=== PATIENT | female | born 1970 | race Caucasian/White ===

== ENCOUNTER 2020-08-17 14:30 | Inpatient (IN) | payer BC, OTHER ==
[~2020-08-17] VITALS: Ht 167.6 cm; Wt 143.3 kg
[~2020-08-17 14:30] MED LIST: ATENOLOL25 MG PO; CARAFATE 1 GM TA1 GM PO; CYCLOBENZAPRINE10 MG PO; DULOXETINE HCL60 MG PO; FAMOTIDINE20 MG PO; GABAPENTIN600 MG PO; HYDROXYZINE PAM25 MG PO; LEVOTHYROXINE50 MCG PO; LISINOPRIL10 MG PO; MELOXICAM15 MG PO; PROPAFENONE HC300 MG PO; PROTONIX40 MG PO
[2020-08-17 16:22] LABS: HEMOGLOBIN 13.9 gm/dl (12.3-15.3); RED BLOOD COUNT 4.96 M/UL (4.00-5.10); WHITE BLOOD COUNT 4.8 K/UL (4.5-11.0)
[2020-08-17 16:39] LABS: BUN/CREATININE RATIO 13 (0-10)
[2020-08-18 05:36] LABS: HEMOGLOBIN 12.4 gm/dl (12.3-15.3)
[2020-08-18 05:37] LABS: RED BLOOD COUNT 4.45 M/UL (4.00-5.10); WHITE BLOOD COUNT 2.3 K/UL (4.5-11.0)
[2020-08-18 05:56] LABS: BUN/CREATININE RATIO 13 (0-10)
--- NOTE | 2020-08-18 18:11 | NUR ---
NO IV MEDS, PATIENT STABLE, STATES OK TO LEAVE IV OUT
[2020-08-19 04:15] LABS: HEMOGLOBIN 12.2 gm/dl (12.3-15.3); RED BLOOD COUNT 4.4 M/UL (4.00-5.10)
[2020-08-19 04:17] LABS: WHITE BLOOD COUNT 4.7 K/UL (4.5-11.0)
[2020-08-19 04:57] LABS: BUN/CREATININE RATIO 23 (0-10)
[2020-08-19] MEDS ORDERED: PROVENTIL HFA6.7 GM INH (09:25)
[2020-08-19] MEDS ORDERED: DEXAMETHASONE 44 MG PO (09:25)
[2020-08-19] MEDS ORDERED: DOXYCYCLINE HY100 M2 PO (09:25)
[2020-08-19] MEDS ORDERED: CEPHALEXIN250 MG PO (09:25)
[2021-02-09] MEDS ORDERED: ATENOLOL25 MG PO (12:58)
[2021-02-09] MEDS ORDERED: WELLBUTRIN SR100 MG PO (12:58)
[2021-02-09] MEDS ORDERED: CYMBALTA60 MG PO (12:59)
[2021-02-09] MEDS ORDERED: MOBIC15 MG PO (12:59)
[2021-02-09] MEDS ORDERED: LISINOPRIL5 MG PO (12:59)
[2021-02-09] MEDS ORDERED: PROPAFENONE HC300 MG PO (13:00)
[2021-02-09] MEDS ORDERED: NEURONTIN800 MG PO (13:00)
[2021-02-09] MEDS ORDERED: ZANAFLEX4 MG PO (13:01)
[2021-02-09] MEDS ORDERED: VISTARIL25 MG PO (13:01)
[2021-02-09] MEDS ORDERED: LEVOTHYROXINE50 MC1 PO (13:02)
[2021-02-09] MEDS ORDERED: LO-DOSE ASPIRIN81 MG PO (16:20)
[2021-02-11] MEDS ORDERED: HYDROCODON-ACE1 EAC2 PO (09:14)
== END 2020-08-19 15:07 | disposition home or self-care (01) | DRG 177 ==
LOC: ER1 14:30 → CDU 18:03 → MED SURG 4 18:03
PROVIDERS: Emergency Medicine; Internal Medicine; ADMIT Internal Medicine Infectious Disease
PROC: 8E0ZXY6 Isolation (ICD-10-PCS; principal; 2020-08-17)
DX: U07.1 COVID-19 (principal); J12.82 Pneumonia due to coronavirus disease 2019; J96.00 Acute respiratory failure, unspecified whether with hypoxia or hypercapnia; Z68.44 Body mass index [BMI] 60.0-69.9, adult; I48.0 Paroxysmal atrial fibrillation; E87.6 Hypokalemia; D72.819 Decreased white blood cell count, unspecified; I10 Essential (primary) hypertension; K22.8 Other specified diseases of esophagus; G89.4 Chronic pain syndrome; F41.9 Anxiety disorder, unspecified; E66.01 Morbid (severe) obesity due to excess calories; E03.9 Hypothyroidism, unspecified; K21.9 Gastro-esophageal reflux disease without esophagitis; M19.90 Unspecified osteoarthritis, unspecified site; Z96.653 Presence of artificial knee joint, bilateral; Z82.49 Family history of ischemic heart disease and other diseases of the circulatory system; Z88.0 Allergy status to penicillin; Z79.899 Other long term (current) drug therapy; Z79.890 Hormone replacement therapy
CPT/HCPCS: 36415; 36600; 71045; 80048; 80053; 82803; 83735; 85025; 85027; 94760; 96374; 96375; 99285; J1100; J1650; J2405; J3480; J7030; J7040; J7121; Q0177; U0002

== ENCOUNTER → 2020-11-19 | Outpatient (CLI) | payer OTHER ==
[~2020-11-19] MED LIST changes: +CEPHALEXIN250 MG PO; +CYMBALTA60 MG PO; +DEXAMETHASONE 44 MG PO; +DOXYCYCLINE HY100 M2 PO; +HYDROCODON-ACE1 EAC2 PO; +LEVOTHYROXINE50 MC1 PO; +LISINOPRIL5 MG PO; +LO-DOSE ASPIRIN81 MG PO; +MOBIC15 MG PO; +NEURONTIN800 MG PO; +PROVENTIL HFA6.7 GM INH; +VISTARIL25 MG PO; +WELLBUTRIN SR100 MG PO; +ZANAFLEX4 MG PO
== END ==
LOC: KOH-I 12:16
DX: M79.671 Pain in right foot (principal); M79.672 Pain in left foot
CPT/HCPCS: 73610; 73630

== ENCOUNTER → 2020-12-11 | Outpatient (CLI) | payer OTHER | LOC: KOH-I 10:19 | DX: M79.605 Pain in left leg (principal) | CPT/HCPCS: 73610; 73630; 93971 ==

== ENCOUNTER → 2021-02-09 | Outpatient (CLI) | payer OTHER ==
[2021-02-09 12:47] LABS: HEMOGLOBIN 13.7 gm/dl (12.3-15.3); RED BLOOD COUNT 4.86 M/UL (4.00-5.10); WHITE BLOOD COUNT 6.7 K/UL (4.5-11.0)
[2021-02-09 13:11] LABS: BUN/CREATININE RATIO 27 (0-10)
== END ==
LOC: OPSV2 02-05 09:30
PROVIDERS: Orthopaedic Surgery
DX: Z01.818 Encounter for other preprocedural examination (principal); G56.01 Carpal tunnel syndrome, right upper limb; Z88.0 Allergy status to penicillin
CPT/HCPCS: 36415; 80048; 85025; 93005

== ENCOUNTER → 2021-02-11 | Day surgery (SDC) | payer OTHER ==
[~2021-02-11] VITALS: Ht 167.6 cm; Wt 149.2 kg
== END | disposition home or self-care (01) ==
LOC: OR 06:13
DX: G56.01 Carpal tunnel syndrome, right upper limb (principal); M77.11 Lateral epicondylitis, right elbow; I10 Essential (primary) hypertension; I48.91 Unspecified atrial fibrillation; M79.7 Fibromyalgia; K58.9 Irritable bowel syndrome, unspecified; E66.9 Obesity, unspecified; M19.90 Unspecified osteoarthritis, unspecified site; Z88.0 Allergy status to penicillin
CPT/HCPCS: J0690; J2001; J2250; J2405; J2704; J3010; J7120

== ENCOUNTER → 2021-10-21 | Outpatient (CLI) | payer OTHER ==
[~2021-10-21] MED LIST changes: -LISINOPRIL5 MG PO; +VITAMIN D21250 MCG PO; -WELLBUTRIN SR100 MG PO; +WELLBUTRIN SR150 MG PO
[2021-10-21 11:49] LABS: BUN/CREATININE RATIO 27 (0-10)
== END ==
LOC: OPSV2 10:00
PROVIDERS: Orthopaedic Surgery
DX: Z01.818 Encounter for other preprocedural examination (principal); G56.01 Carpal tunnel syndrome, right upper limb
CPT/HCPCS: 36415; 71046; 80048; 83036; 93005

== ENCOUNTER → 2021-10-28 | Day surgery (SDC) | payer OTHER ==
[~2021-10-28] VITALS: Ht 167.6 cm; Wt 144.7 kg
== END | disposition home or self-care (01) ==
LOC: OR 06:35
DX: G56.21 Lesion of ulnar nerve, right upper limb (principal); I10 Essential (primary) hypertension; I48.91 Unspecified atrial fibrillation; K58.9 Irritable bowel syndrome, unspecified; M19.90 Unspecified osteoarthritis, unspecified site; E03.9 Hypothyroidism, unspecified; M79.7 Fibromyalgia; E66.01 Morbid (severe) obesity due to excess calories; K76.0 Fatty (change of) liver, not elsewhere classified; Z96.653 Presence of artificial knee joint, bilateral; Z98.1 Arthrodesis status; Z98.51 Tubal ligation status; Z90.49 Acquired absence of other specified parts of digestive tract; Z88.0 Allergy status to penicillin; Z20.822 Contact with and (suspected) exposure to COVID-19
CPT/HCPCS: J0690; J1170; J1885; J2001; J2250; J2550; J2704; J2710; J3010; J3370; J7120

== ENCOUNTER 2021-10-31 11:12 | Emergency (ER) | payer OTHER | END 2021-10-31 12:50 | disposition home or self-care (01) | LOC: ER1 11:12 | DX: Z48.811 Encounter for surgical aftercare following surgery on the nervous system (principal); I48.91 Unspecified atrial fibrillation; E78.5 Hyperlipidemia, unspecified; Z88.0 Allergy status to penicillin | CPT/HCPCS: 96372; 99282; J1885 ==

== ENCOUNTER → 2022-04-21 | Outpatient (CLI) | payer OTHER | LOC: HEART 5 15:30 | DX: R94.31 Abnormal electrocardiogram [ECG] [EKG] (principal); I48.0 Paroxysmal atrial fibrillation; I51.7 Cardiomegaly | CPT/HCPCS: 93306 ==

== ENCOUNTER 2022-05-09 13:40 | Emergency (ER) | payer OTHER ==
[2022-05-09] MEDS ORDERED: HYDROCODON-ACE1 EAC4 PO (17:10)
== END 2022-05-09 18:05 | disposition home or self-care (01) ==
LOC: ER1 13:40
DX: S80.01XA Contusion of right knee, initial encounter (principal); I48.91 Unspecified atrial fibrillation; W01.0XXA Fall on same level from slipping, tripping and stumbling without subsequent striking against object, initial encounter
CPT/HCPCS: 73564; 99283